=== PATIENT | female | born 1940 | race Caucasian/White ===

== ENCOUNTER → 2021-03-24 | Outpatient (CLI) | payer MEDICARE, OTHER ==
[2021-03-24 16:07] LABS: HCT 40.5 % (37.2-46.3); HGB 12.8 g/dL (12.0-15.0); MCH 30.6 pg (27.0-32.0); MCHC 31.6 g/dL (32.0-37.0); MCV 96.9 fL (80.0-97.0); Platelet Count 237 X 10*3/uL (140-440); RBC 4.18 X 10*6/uL (4.10-5.20); RDW 13.2 % (11.5-14.5); WBC 5.44 X 10*3/uL (4.50-10.00)
[2021-03-24 17:45] LABS: African American GFR (CKD) 62.1 (60.0-200.0); Albumin 4.5 g/dL (3.80-4.90); Albumin/Globulin Ratio 1.96 (1.60-3.17); Anion Gap 6.9 mmol/L (4.00-12.00); Calcium 9.1 mg/dL (8.7-10.3); Carbon Dioxide 30.1 mmol/L (21.6-31.8); Globulin 2.3 g/dL (1.6-3.3); Non-African American GFR(CKD) 53.5 (60.0-200.0); Potassium 4.7 mmol/L (3.5-5.5); Total Bilirubin 0.6 mg/dL (0.2-1.2); Total Protein 6.8 g/dL (6.2-8.2)
== END | disposition home or self-care (01) ==
LOC: LABWHC1 10:14
PROVIDERS: ATTEND Internal Medicine
DX: E66.9 Obesity, unspecified (principal); R53.82 Chronic fatigue, unspecified
CPT/HCPCS: 36415; 80053; 82306; 82607; 84439; 84443; 85027

== ENCOUNTER 2021-08-19 10:45 | Emergency (ER) | payer MEDICARE, OTHER ==
[2021-08-19 10:54] VITALS: BP 133/74; PULSE 90; RESP 16; TEMP 98
--- NOTE | 2021-08-19 12:14 | ED ---
General Adult HPI - General Chief complaint: Neuro Symptoms/Deficit Stated complaint: pain in shoulder/neck Time Seen by Provider: 08/19/21 10:50 Source: patient, RN notes reviewed, old records reviewed Mode of arrival: ambulatory Limitations: no limitations - History of Present Illness Initial comments: This is a 80-year-old female presents emergency Department complaining of pain in her right trapezius muscle from the shoulder up the muscle into the base of her skull. Patient states she just got done exercising at the gym and this started to occur. Patient states pressing on it reproduces the pain. Patient also states she had a weird sensation in her right eye on the lateral aspect she initially told nursing it was blurred vision but she now states she never actually had any visual disturbance it just was a weird sensation in the lateral aspect of her eye. Patient denies any slurred speech. Patient denies any headache. Patient denies any numbness weakness. Patient denies any chest pain palpitations difficult breathing shortest breath per patient has abdominal pain patient denies nausea vomiting diarrhea. Patient denies any fever chills or cough. - Related Data Allergies Allergy/AdvReac Type Severity Reaction Status Date / Time Sulfa (Sulfonamide Allergy Swelling Verified 08/19/21 10:49 Antibiotics) Review of Systems ROS Statement: Those systems with pertinent positive or pertinent negative responses have been documented in the HPI. ROS Other: All systems not noted in ROS Statement are negative. Past Medical History Past Medical History: No Reported History History of Any Multi-Drug Resistant Organisms: None Reported Past Surgical History: Breast Surgery Past Psychological History: No Psychological Hx Reported Smoking Status: Never smoker Past Alcohol Use History: None Reported Past Drug Use History: None Reported General Exam - General Exam Comments Initial Comments: GENERAL: Patient is well-developed and well-nourished. Patient is nontoxic and well- hydrated and is in no acute distress. ENT: Neck is soft and supple. No significant lymphadenopathy is noted. Oropharynx is clear. Moist mucous membranes. Neck has full range of motion without eliciting any pain. EYES: The sclera were anicteric and conjunctiva were pink and moist. Extraocular movements were intact and pupils were equal round and reactive to light. Eyeli ds were unremarkable. PULMONARY: Unlabored respirations. Good breath sounds bilaterally. No audible rales rhonchi or wheezing was noted. CARDIOVASCULAR: There is a regular rate and rhythm without any murmurs gallops or rubs. Femoral pulses are equal bilaterally ABDOMEN: Soft and nontender with normal bowel sounds. No palpable organomegaly was noted. There is no palpable pulsatile mass. SKIN: Skin is clear with no lesions or rashes and otherwise unremarkable. NEUROLOGIC: Patient is alert and oriented x3. Cranial nerves II through XII are grossly intact. Motor and sensory are also intact. Normal speech, volume and content. Symmetrical smile. NIH is 0 MUSCULOSKELETAL: Normal extremities with adequate strength and full range of motion. Patient has tenderness on the right trapezius muscle and this is the same pain she was experiencing when she came in. LYMPHATICS: No significant lymphadenopathy is noted PSYCHIATRIC: Normal psychiatric evaluation. Limitations: no limitations Course Vital Signs 08/19/21 10:49 Temperature 98 F Pulse Rate 90 Respiratory 16 Rate Blood Pressure 133/74 O2 Sat by Pulse 97 Oximetry Medical Decision Making - Medical Decision Making Patient was in agreement with care plan. But after about 20 minutes she decided she wanted be here anymore and she left AMA but refused to sign paperwork. EKG showed normal sinus rhythm at 70 bpm [place] interval is 124 QRS is 74 QT interval 362 QTC is 412. Patient's EKG shows no ST segment elevation or depression. Disposition Clinical Impression: Trapezius muscle strain Disposition: Left Against Medical Advice Is patient prescribed a controlled substance at d/c from ED?: No Referrals: Evangelina Warner MD [Primary Care Provider] - 1-2 days Time of Disposition: 12:14
== END 2021-08-19 12:19 | disposition left against medical advice (07) ==
LOC: EC 10:45
DX: S46.811A Strain of other muscles, fascia and tendons at shoulder and upper arm level, right arm, initial encounter (principal); Y93.B9 Activity, other involving muscle strengthening exercises; Y92.39 Other specified sports and athletic area as the place of occurrence of the external cause
CPT/HCPCS: 93005; 99283

== ENCOUNTER → 2022-10-27 | Outpatient (CLI) | payer MEDICARE ==
--- NOTE | 2022-10-30 10:43 | BD ---
EXAMINATION TYPE: Axial Bone Density DATE OF EXAM: 10/27/2022 CLINICAL HISTORY: 81 years old Female. 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 Bone mineral density as measured about the Lumbar spine is: ----- L1-L4(G/cm2): 1.087 T Score Values are as follows: ----- L1: -1.6 ----- L2: -1.1 ----- L3: -1.0 ----- L4: 0.3 ----- L1-L4: -0.8 Z Score Values are as follows: ----- L1: 0.5 ----- L2: 1.0 ----- L3: 1.2 ----- L4: 2.4 ----- L1-L4: 1.4 First dexa at [facility] Bone mineral density about the R hip (g/cm2): 0.764 Bone mineral density about the L hip (g/cm2): 0.883 T Score values are as follows: -----R Neck: -2.5 -----L Neck: -1.9 -----R Total: -1.9 -----L Total: -1.0 Z Score values are as follows: -----R Neck: -0.1 -----L Neck: 0.5 -----R Total: 0.3 -----L Total: 1.3 FRAX%s: The graph provided illustrates a 27.4% chance for a major osteoporotic fx and a 9.1% chance f or the hips probability for fx in 10 years time. IMPRESSION: Normal (Values between +1 and -1 indicate normal bone mass). Consider repeating this study in 5 year s or sooner if there is some new clinical indication. NOTE: T-SCORE=SD OF THE YOUNG ADULT MEAN.
== END | disposition home or self-care (01) ==
LOC: RADBDWWP 12:03
PROVIDERS: ATTEND Orthopaedic Surgery
DX: M85.89 Other specified disorders of bone density and structure, multiple sites (principal); M19.031 Primary osteoarthritis, right wrist
CPT/HCPCS: 77080

== ENCOUNTER 2023-06-01 16:43 | Emergency (ER) | payer MEDICARE ==
[2023-06-01 17:21] VITALS: TEMP 98.7
[2023-06-01] MEDS ORDERED: HYDROmorphone 1 MG/ML 1 ML SYRINGE IM STA ×2 (17:24→18:41)
[2023-06-01 18:00] LABS: Glucose,Whole Blood 84 mg/dL (70-110)
--- NOTE | 2023-06-01 20:27 | ED ---
Upper Extremity HPI - General Chief Complaint: Extremity Injury, Upper Stated Complaint: L wrist broke swelling Time Seen by Provider: 06/01/23 17:20 Source: patient Mode of arrival: ambulatory Limitations: no limitations - History of Present Illness Initial Comments: Patient is an 82-year-old woman who had ground level fall landing on outstretched left hand. She states that she had left wrist pain and went to urgent care. She had x-rays there, was diagnosed with wrist fracture, had a splint placed, and was discharged. The patient states that the splint was causing excruciating, unbearable pain and presents here. The patient states she does have sensation to the hand. No previous surgery. MD Complaint: Injury to:: left, wrist Onset/Timin -: hour(s) Other Extremity Injury: Wrist: Left Other Injuries: chest Handedness: right Place: outdoors Improves With: immobilization Worsens With: movement of extremity Context: fall Associated Symptoms: denies other symptoms - Related Data Previous Rx's Medication Instructions Recorded HYDROcodone/APAP 5-325MG [[place] 1 tab PO Q4HR PRN 3 Days #18 tab 06/01/23 5-325] Allergies Allergy/AdvReac Type Severity Reaction Status Date / Time Sulfa (Sulfonamide Allergy Swelling Verified 08/19/21 10:49 Antibiotics) Review of Systems ROS Statement: Those systems with pertinent positive or pertinent negative responses have been documented in the HPI. ROS Other: All systems not noted in ROS Statement are negative. Constitutional: Denies: fever, weakness Respiratory: Denies: cough, dyspnea Cardiovascular: Denies: chest pain, syncope Gastrointestinal: Denies: abdominal pain, vomiting Musculoskeletal: Reports: as per HPI, joint swelling, arthralgia. Denies: back pain Neurological: Denies: headache, weakness, numbness Past Medical History Past Medical History: No Reported History History of Any Multi-Drug Resistant Organisms: None Reported Past Surgical History: Breast Surgery Past Psychological History: No Psychological Hx Reported Smoking Status: Never smoker Past Alcohol Use History: None Reported Past Drug Use History: None Reported General Exam Limitations: no limitations General appearance: alert, in no apparent distress Head exam: Present: atraumatic, normocephalic Eye exam: Present: normal appearance. Absent: scleral icterus, conjunctival injection Neck exam: Present: normal inspection, full ROM. Absent: tenderness Respiratory exam: Present: normal lung sounds bilaterally. Absent: respiratory distress, wheezes, rales, rhonchi, stridor Cardiovascular Exam: Present: regular rate, normal rhythm, normal heart sounds. Absent: systolic murmur, diastolic murmur, rubs, gallop GI/Abdominal exam: Present: soft. Absent: tenderness Left Shoulder Exam: Present: normal inspection, full ROM. Absent: tenderness, swelling Upper Arm exam: Present: normal inspection, full ROM. Absent: tenderness, swelling Elbow exam: Present: normal inspection, full ROM. Absent: tenderness, swelling Forearm Wrist exam: Present: tenderness, swelling, abrasion, deformity. Absent: laceration, ecchymosis, dislocation, erythema, tenderness over anatomical snuff box Hand Wrist exam: Present: normal inspection, full ROM Back exam: Present: normal inspection. Absent: vertebral tenderness Neurological exam: Present: alert. Absent: motor sensory deficit Skin exam: Present: warm, dry, intact, normal color, abrasion (Forearm). Absent: rash Course Vital Signs 06/01/23 06/01/23 16:49 20:57 Temperature 98.7 F Pulse Rate 76 70 Respiratory 18 19 Rate Blood Pressure 166/92 170/72 O2 Sat by Pulse 97 90 L Oximetry Medical Decision Making - Medical Decision Making Patient is an 82-year-old woman with left wrist fracture. He did have good relief of symptoms with the analgesia here. She refused to have the sugar tong splint replaced. She will only accept the padded splint that had been applied. Discussed that this is less than standard care but patient is going to follow with orthopedic surgeon soon. We discussed appropriate further care and follow- up as well as return parameters. The patient had wrist x-ray which I interpreted as showing acute distal radius and ulnar fracture The patient had chest and rib x-ray which I interpreted as not showing displaced rib fracture or pneumothorax. Was pt. sent in by a medical professional or institution (, PA, CONTROL EQUIPMENT ELECTRICIAN, urgent care, hospital, or longterm...) When possible be specific @ -[Patient sent from urgent care for further evaluation related to pain Did you speak to anyone other than the patient for history (EMS, parent, family, police, friend...)? What history was obtained from this source @ -[Family does give some history Did you review nursing and triage notes (agree or disagree)? Why? @ -[I reviewed and agree with nursing and triage notes] Were old charts reviewed (outside hosp., previous admission, EMS record, old EKG, old radiological studies, urgent care reports/EKG's, longterm records)? Report findings @ -[No old charts were reviewed] Differential Diagnosis (chest pain, altered mental status, abdominal pain women, abdominal pain men, vaginal bleeding, weakness, fever, dyspnea, syncope, headache, dizziness, GI bleed, back pain, seizure, CVA, palpatations, mental health, musculoskeletal)? @ -[Differential Musculoskeletal Muscular strain, contusion, ligament sprain, fracture, muscle spasm, nerve compression, arterial occlusion,. This is not meant to be in all inclusive list EKG interpreted by me (3pts min.). @ -[As above] X-rays interpreted by me (1pt min.). @ -[I interpreted as above CT interpreted by me (1pt min.). @ -[None done] U/S interpreted by me (1pt. min.). @ -[None done] What testing was considered but not performed or refused? (CT, X-rays, U/S, labs)? Why? @ -[None] What meds were considered but not given or refused? Why? @ -[None] Did you discuss the management of the patient with other professionals (professionals i.e. , PA, CONTROL EQUIPMENT ELECTRICIAN, lab, RT, psych nurse, social worker aide, edging supervisor, teacher, air crew officer, case packer)? Give summary @ -[No] Was smoking cessation discussed for >3mins.? @ -[No] Was critical care preformed (if so, how long)? @ -[No] Were there social determinants of health that impacted care today? How? (Homelessness, low income, unemployed, alcoholism, drug addiction, transportation, low edu. Level, literacy, decrease access to med. care, senior care, rehab)? @ -[No] Was there de-escalation of care discussed even if they declined (Discuss DNR or withdrawal of care, Hospice)? DNR status @ -[No] What co-morbidities impacted this encounter? (DM, HTN, Smoking, COPD, CAD, Cancer, CVA, ARF, Chemo, Hep., AIDS, mental health diagnosis, sleep apnea, morbid obesity)? @ -[None] Was patient admitted / discharged? Hospital course, mention meds given and route, prescriptions, significant lab abnormalities, going to OR and other pertinent info. @ -[Patient is a 82-year-old woman with wrist fracture. She did have some relief of symptoms with analgesic here. Discussed appropriate further care and follow-up. I did recommend that we replace her splint with more substantial splint here but the patient is refusing to have any manipulation of the arm. She understands risk associated. Undiagnosed new problem with uncertain prognosis? @ -[No] Drug Therapy requiring intensive monitoring for toxicity (Heparin, Nitro, Insulin, Cardizem)? @ -[No] Were any procedures done? @ -[No] Diagnosis/symptom? @ -[Acute wrist fracture Acute, or Chronic, or Acute on Chronic? @ -[Acute Uncomplicated (without systemic symptoms) or Complicated (systemic symptoms)? @ -[Uncomplicated Side effects of treatment? @ -[No] Exacerbation, Progression, or Severe Exacerbation? @ -[No] Poses a threat to life or bodily function? How? (Chest pain, [place], [place], pneumonia, PE, COPD, DKA, ARF, appy, cholecystitis, CVA, Diverticulitis, Homicidal, Suicidal, threat to staff... and all critical care pts) @ -[No] - Lab Data Lab Results 06/01/23 Range/Units 17:58 POC Glucose (mg/dL) 84 (70-110) mg/dL POC Glu Pad Machine Feeder ID Charo Ospina Disposition Clinical Impression: Wrist fracture, closed Disposition: HOME SELF-CARE Condition: Fair Instructions (If sedation given, give patient instructions): Wrist Fracture in Adults (ED) Prescriptions: HYDROcodone/APAP 5-325MG [[place] 5-325] 1 tab PO Q4HR PRN 3 Days #18 tab PRN Reason: Pain Is patient prescribed a controlled substance at d/c from ED?: Yes Referrals: Jodee Gordillo DO [Primary Care Provider] - 1-2 days Donis Zabala DO [Doctor of Osteopathic Medicine] - 1-2 days
[2023-06-01] MEDS ORDERED: ACET/COD 300 MG/30 MG STARTER PACK 6 TAB BTL PO STA (20:37)
[2023-06-01 21:04] VITALS: BP 170/72; PULSE 70; RESP 19
--- NOTE | 2023-06-01 22:19 | XR ---
EXAMINATION TYPE: XR wrist complete LT DATE OF EXAM: 06/01/2023 6:09 PM CLINICAL INDICATION:Female, 82 years old with history of fall injury; [facility] COMPARISON: None. TECHNIQUE: FINDINGS: 4 views of the wrist. Osseous mineralization appears diminished. There is an acute comminuted fractur e of the distal radius, primarily transverse, with some extension to the mid radiocarpal joint withou t significant step-off. No significant dorsal or ventral angulation is seen. Acute mildly displaced u lnar styloid process fracture is also present. Mild widening of the scapholunate interspace can be se en with disruption of the scapholunate ligament. Joint spaces and alignment of the wrist is otherwise maintained. Moderate to severe degenerative changes at the basal joint of the thumb with mild latera l subluxation noted. Soft tissue swelling about the wrist. No radiopaque foreign body is seen. IMPRESSION: 1. Acute comminuted fracture (Colles' fracture) of the distal radius without significant angulation. 2. Acute mildly displaced ulnar styloid process fracture. 3. Mild widening of the scapholunate interspace can be seen with disruption of the scapholunate liga ment.
--- NOTE | 2023-06-01 22:24 | XR ---
EXAMINATION TYPE: XR ribs LT w pa chest xray DATE OF EXAM: 06/01/2023 6:16 PM CLINICAL INDICATION:Female, 82 years old with history of fall injury; [facility] COMPARISON: None TECHNIQUE: Frontal and oblique views of the left ribs with frontal chest radiograph. FINDINGS: The ribs have a normal appearance. No evidence of displaced or deforming fracture. Overall , the lungs are clear without evidence of pneumothorax or significant pleural fluid. The cardiac anne houette is normal in size. Moderately calcified, mildly tortuous aorta. Mild degenerative changes of the shoulders and spine, with mild apex right thoracic scoliosis. FOLLOW-UP: Follow-up as clinically warranted. IMPRESSION: 1. No evidence of displaced or deforming left rib fracture. 2. No visualized pneumothorax.
== END 2023-06-01 21:10 | disposition home or self-care (01) ==
LOC: EC 16:43
DX: S52.502A Unspecified fracture of the lower end of left radius, initial encounter for closed fracture (principal); S52.612A Displaced fracture of left ulna styloid process, initial encounter for closed fracture; Z88.2 Allergy status to sulfonamides; W18.30XA Fall on same level, unspecified, initial encounter
CPT/HCPCS: 99284; 96372 ×2; 36415; 71101; 73110; J1170; 29125

== ENCOUNTER → 2023-06-06 | Outpatient (CLI) | payer MEDICARE, OTHER ==
--- NOTE | 2023-06-06 09:42 | CT ---
EXAMINATION TYPE: CT wrist LT wo con CT DLP: 81.9 mGycm, Automated exposure control for dose reduction was used. DATE OF EXAM: 06/06/2023 9:25 AM COMPARISON: Extremity radiograph 06/01/2023 CLINICAL INDICATION:Female, 82 years old with history of M25.532 PAIN IN LEFT WRIST, Fall, fx TECHNIQUE: Axial images were obtained of the CT wrist LT wo con, Additional coronal and sagittal refo rmatted images and soft tissue and bone window were obtained for review. 3-D reconstruction was creat ed on a separate workstation. Contrast used:(None if empty) Oral contrast used: (None if empty) FINDINGS: Redemonstration of distal radius intra-articular comminuted fracture with shortening and some dorsal angulation. No significant callus formation on this exam. Additional fracture of the ulnar styloid pr ocess. No additional fractures are visualized. There is degeneration changes worse at the first digit metaca rpal phalangeal joint. IMPRESSION: 1. Comminuted intra-articular fracture of the distal radius and fracture of the ulnar styloid proces s. There remains shortening of the radius with mild dorsal angulation. Alignment is similar to prior radiograph. 2. 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
== END | disposition home or self-care (01) ==
LOC: RADCTMAIN 08:52
PROVIDERS: ATTEND Orthopaedic Surgery
DX: S52.572A Other intraarticular fracture of lower end of left radius, initial encounter for closed fracture (principal); S52.612A Displaced fracture of left ulna styloid process, initial encounter for closed fracture; M19.032 Primary osteoarthritis, left wrist; W19.XXXA Unspecified fall, initial encounter

== ENCOUNTER → 2024-12-03 | Outpatient (CLI) | payer MEDICARE, OTHER ==
--- NOTE | 2024-12-04 19:21 | MR ---
EXAMINATION TYPE: MR brain wo/w con DATE OF EXAM: 12/03/2024 8:31 PM COMPARISON: None. CLINICAL INDICATION: Female, 84 years old with history of Z91.81, R26.89, Z74.09; [facility], Very woozy fee ling after a fall in Aug 2024 hit head, Impaired mobility TECHNIQUE: Multi planar, multi sequence imaging was performed through the brain including: T1, T2, In version recovery, susceptibility weighted imaging and gradient echo imaging and Diffusion weighted im aging. The patient was then given intravenous contrast and multi planar, T1 fat-saturation images wer e obtained. IV Contrast: 5 mL Gadobutrol FINDINGS: Mild cerebral atrophy with proportional dilation of ventricular system. Diffusion-weighted imaging s hows no evidence of restricted diffusion to suggest acute/subacute infarct. Intracranial arterial audrey w voids are maintained. Midline structures show no abnormality. Extensive white matter of high T2 sig nal intensity are seen within the periventricular white matter. The susceptibility weighted images do not reveal any evidence for micro-hemorrhage. After administration of gadolinium, no abnormal enhanc ement is seen. The bone marrow signal is within normal limits. Paranasal sinuses and mastoid air cells: No significant paranasal sinus disease. Visualized orbits: Bilateral aphakia IMPRESSION: 1. No evidence of intracranial mass, acute/subacute infarct, or abnormal enhancement. 2. Nonspecific white matter changes, likely related to small vessel ischemic disease. 3. Mild cerebral atrophy [facility], , 12/04/2024 7:19 PM
== END ==
LOC: RADMRIMAIN 19:45
PROVIDERS: ATTEND Family Medicine
DX: R26.89 Other abnormalities of gait and mobility (principal); G31.89 Other specified degenerative diseases of nervous system; Z91.81 History of falling; Z74.09 Other reduced mobility
CPT/HCPCS: 70553; A9585